=== PATIENT | female | born 1990 | race Caucasian/White ===

== ENCOUNTER 2016-06-22 20:05 | Emergency (ER) | payer OTHER ==
[2016-06-22 21:53] LABS: BASOPHIL 0.4 % (0-2); EOSINOPHIL 0.6 % (0-5); HCT 33.6 % (37.0-47.0); HGB 10.6 g/dl (12.5-16.0); LYMPHOCYTE 11.3 % (15-48); MCHC 31.5 g/dL (32.0-36.0); MCV 82.6 fL (78.0-100.0); MONOCYTE 7.1 % (0-12); MPV 9.7 fL (6.0-9.5); NEUTROPHIL 80.6 % (41-80); PLT 319 K/uL (150-400); RBC 4.07 M/uL (4.20-5.40); RDW 13.9 % (11.5-14.0); WBC 12.2 K/uL (4.0-10.5)
[2016-06-22 22:32] LABS: CREATININE 0.8 mg/dL (0.5-1.0)
[2016-06-22 22:34] LABS: POTASSIUM 4.4 mmol/L (3.5-5.1)
[2016-06-22 22:35] LABS: ALBUMIN 3.7 g/dL (3.5-5.0); BILIRUBIN - TOTAL 0.2 mg/dL (0.1-1.0); GLOBULIN (CALCULATION) 2.7 g/dL (2.2-4.2); TOTAL PROTEIN 6.4 g/dL (6.4-8.3)
[2016-06-22 22:46] LABS: BILIRUBIN NEGATIVE (NEGATIVE); BLOOD 3+ Ery/uL (NEGATIVE); CLARITY CLEAR (CLEAR); COLOR YELLOW (YELLOW); GLUCOSE (U) NORMAL (NORMAL); KETONE (U) NEGATIVE (NEGATIVE); LEUKOCYTES 1+ Leu/uL (NEGATIVE); NITRITE NEGATIVE (NEGATIVE); PROTEIN NEGATIVE (NEGATIVE); SPECIFIC GRAVITY 1.015 (1.001-1.030); UROBILINOGEN 0.2 mg/dL (0.2-1.0)
[2016-06-22 22:51] LABS: BACTERIA TRACE; MUCOUS MODERATE; SQUAMOUS EPITHELIAL CELLS RARE
== END 2016-06-22 23:57 | disposition home or self-care (01) ==
LOC: FER 20:05
PROVIDERS: Emergency Medicine
DX: O86.20 Urinary tract infection following delivery, unspecified (principal)
CPT/HCPCS: 36415; 80053; 81001; 85025; 87804; 87899; J0690